=== PATIENT | female | born 1990 | race Native Hawaiian/Other Pacific Islander ===

== ENCOUNTER 2020-09-22 19:26 | Emergency (ER) | payer BC ==
[2020-10-02 08:28] LABS: PLATELET COUNT 337 K/uL (152-353)
[2020-10-02 08:32] LABS: POTASSIUM 3.8 mmol/L (3.6-5.2)
== END 2020-09-23 00:45 | disposition home or self-care (01) ==
LOC: ED 19:26
PROVIDERS: Family Medicine
DX: R10.13 Epigastric pain (principal); K29.70 Gastritis, unspecified, without bleeding
CPT/HCPCS: 36415; 80053; 81000; 81025; 85027; 96374; 96375; 99284; Q9963